=== PATIENT | female | born 1970 | race Hispanic/Latino ===

== ENCOUNTER 2020-04-16 14:05 | Emergency (ER) | payer BC, SELFPAY ==
[2020-04-16 14:12] VITALS: BP 88/62; PULSE 73; RESP 12; TEMP 36.6; O2SAT 100
--- NOTE | 2020-04-16 15:04 | ED.EYEPROB ---
HPI - Eye Problem General Chief complaint: Neuro Symptoms/Deficit Stated complaint: eye irritation Source: patient and RN notes reviewed Limitations: no limitations History of Present Illness HPI Narrative: The patient, non-smoker/occasional drinker, presents with two issues of headache and improving pinkeye. Patient indicates she has a couple month worsening of several-year history of headache. She has had intermittent headaches throughout her life and now has a couple day history of gradual onset, migratory, vertex and neck headache. 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 No fever, nausea/vomiting, URI?sinusitis, toothache [she has had routine annual dental and optical visits ], no lateralizing weakness, speech?visual changes, blurred vision--but she has had 3 days of improving left, lateral eye localized pinkeye . Screening vital signs are unremarkable except for blood pressure, states she has had small persons blood pressure in the past; no syncope, CP , SOB Related Data Allergies Allergy/AdvReac Type Severity Reaction Status Date / Time No Known Allergies Allergy Unverified 04/16/20 14:38 Review of Systems Review of Systems: Narrative: General/Constitutional: No weight loss,fever Eyes: ++ Redness,no discharge Ears/Nose/Throat: No: Epistaxis,ear discharge Respiratory: Denies: Hemoptysis Gastrointestinal: No Vomiting, Bleeding-rectal Skin: No Lumps, eruption Neurologic: No Focal Weakness,Sz Hematologic: Denies: Petechiae/Purpura Psychiatric: No: Suicida ideationl All Other Systems: Reviewed and Negative PMFSH Social History Social History Smoking status: Never smoker Alcohol intake: current Comments At time of signature, agree with nursing past medical, surgical, social and family history. There is no relevant family history pertinent to the presenting complaint Exam Narrative: Exam Narrative: General Appearance: Well appearing, Well nourished, No distress EYE: PERRL, Pxnl-[id number] normal, EOMI, Lens normal), Normal corneas , anterior chamber deep, Conjunctiva injection lateral/ temporally OS Neurological: A&O x3, CN II-X intact Ears: External ear normal, Auditory canal normal Nose: Normal nose, Nares clear Mouth/Throat: Normal appearing, Normal lips Neck: Supple, No adenopathy Respiratory: Airway patent, No respiratory distress Skin: Warm, Dry Psychiatric: Normal mood, Normal affect Course Vital Signs Vital signs: Vital Signs Temperature 97.8 F 04/16/20 14:12 Pulse Rate 73 04/16/20 14:12 Respiratory Rate 12 04/16/20 14:12 Blood Pressure 88/62 L 04/16/20 14:12 Pulse Oximetry 100 04/16/20 14:12 Temperature 97.8 F 04/16/20 14:12 Pulse Rate 73 04/16/20 14:12 Respiratory Rate 12 04/16/20 14:12 Blood Pressure 88/62 L 04/16/20 14:12 Pulse Oximetry 100 04/16/20 14:12 Discharge Plan Discharge Clinical Impression: Headache disorder, Hx of episcleritis Patient Disposition: Home, Self-Care Condition: Stable Instructions: Acute Headache (ED) Additional Instructions: Follow-up with regular physician, eye doctor. Also try diet diary for chronic headaches, photo-log of redness Prescriptions: New acetaminophen-codeine 300-30 mg tablet 1 tablet PO HS PRN (Reason: pain) Qty: 10 RF: 0 tobramycin [Tobrex] 0.3 % drops 1 drop EACH EYE Q4H Qty: 5 RF: 0 tramadol 50 mg tablet 50 mg PO Q6H PRN (Reason: pain) Qty: 15 RF: 1 Interventions: Discharge Disposition Last Done: 04/16/20 15:15 Follow-up/Referrals: UNKNOWN,DOCTOR [Primary Care Provider] - Discharge Date/Time: 04/16/20 15:15
== END 2020-04-16 15:15 | disposition home or self-care (01) ==
PROVIDERS: Emergency Provider Emergency Medicine
DX: R51 Headache (principal); Z86.69 Personal history of other diseases of the nervous system and sense organs
CPT/HCPCS: 99203; G0463